=== PATIENT | male | born 1970 | race African-American/Black ===

== ENCOUNTER 2018-10-09 14:03 | Emergency (ER) | payer OTHER ==
[~2018-10-09] VITALS: Ht 188 cm; Wt 95.7 kg
[2018-10-09] MEDS ORDERED: REMERON15 MG ORAL (14:23)
[2018-10-09] MEDS ORDERED: INVEGA SUS78 MG/0.5 IM (14:23)
--- NOTE | 2018-10-09 14:27 | NUR ---
ED Nurse Note: Pt came in from home due to lower back pain x 3 days, 10/10 ada. Pt has hx of spinal stenosis, had a sx last year for L3-4, supposed to be schedule another sx this year for L6-8 but has not have the appointment yet. No recent injury. Pt has been taking Ibuprofen at home but has not been helping. AOx4, VSS. Will cont to monitor.
--- NOTE | 2018-10-09 15:05 | Emergency Room Report ---
History of Present Illness General Chief Complaint: Back Pain-No Injury Source: Patient Present Illness HPI 47-year-old male presents having complaining of 10 out of 10 in severity low back pain that is progressive 3 days. Patient reports history of chronic back pain as well as previous surgery. Patient stated that he was prescribed gabapentin however he is currently in a program and has not had his gabapentin and over a week. He denies trauma or fall, fevers or chills, recent spinal procedures or history of cancer. Denies saddle anesthesia, urinary retention or urinary incontinence. Allergies: Coded Allergies: No Known Allergies (Unverified , 10/09/18) Patient History Past Medical History: see triage record Past Surgical History: none Pertinent Family History: none Reviewed Nursing Documentation: PMH: Agreed; PSxH: Agreed Nursing Documentation-PMH Past Medical History: No History, Except For Hx Cardiac Problems: No Hx Hypertension: Yes Hx Pacemaker: No Hx Asthma: No Hx COPD: No Hx Diabetes: No Hx Cancer: No Hx Gastrointestinal Problems: Yes - alcoholism, hepatitis C Hx Dialysis: No History Of Psychiatric Problem: Yes - depression, schizoaffective disorder Hx Neurological Problems: Yes - spinal stenosis, neuropathy Hx Cerebrovascular Accident: No Hx Seizures: No Review of Systems All Other Systems: negative except mentioned in HPI Physical Exam Vital Signs Date Time Temp Pulse Resp B/P (MAP) Pulse Ox O2 Delivery O2 Flow Rate FiO2 10/09/18 14:17 98.1 101 18 133/88 95 Room Air Sp02 EP Interpretation: reviewed, normal General Appearance: no apparent distress, alert, GCS 15, non-toxic Head: normocephalic, atraumatic Eyes: bilateral eye normal inspection, bilateral eye PERRL ENT: hearing grossly normal, normal voice Neck: full range of motion Respiratory: lungs clear, normal breath sounds, speaking full sentences Cardiovascular #1: regular rate, rhythm, no edema Gastrointestinal: normal bowel sounds, non tender, soft Rectal: deferred Genitourinary: normal inspection Musculoskeletal: back normal, gait/station normal, normal range of motion, non- tender Neurologic: alert, oriented x3, responsive, motor strength/tone normal, sensory intact, speech normal, grossly normal Psychiatric: judgement/insight normal Skin: normal color, no rash, warm/dry, well hydrated Lymphatic: no adenopathy Medical Decision Making PA Attestation Dr. Jimenez is my supervising Physician whom patient management has been discussed with. Diagnostic Impression: Primary Impression: Exacerbation of chronic back pain ER Course 47-year-old male presents having complaining of 10 out of 10 in severity low back pain that is progressive 3 days. Patient reports history of chronic back pain as well as previous surgery. Patient stated that he was prescribed gabapentin however he is currently in a program and has not had his gabapentin and over a week. He denies trauma or fall, fevers or chills, recent spinal procedures or history of cancer. Denies saddle anesthesia, urinary retention or urinary incontinence. Ddx considered: epidural abscess, fracture, sprain/strain, meningitis, spinal chord injury, sciatica, cauda equina, Pyelonephritis, renal calculi just to name a few. Vital signs reviewed and are WNL during ED visit. Pt. is afebrile with no signs of infection No new symptoms, and denies recent trauma. No saddle anesthesia noted, Pt. denies incontinence Neurovascular is intact ROM is limited due to pain * Mild Tenderness to palpation to paraspinal muscles of the lower back with midline tenderness. *Pt. describes pain today as moderate and radiates across the lower back and down the right family manager thigh. ORDERS: none warranted at this time. INTERVENTIONS: - 20mg IM Toradol -Robaxin PO Pt. in [facility] program, will Rx non-controlled medications with lower abuse potential. Gabapentin becoming an abusable medication so small quantity and lowest dose will be used. D/W Pt. that for further pain management is it recommended to consult PCP or a Chronic Pain management doctor. A provider who can safely prescribe controlled substances with close follow up. DISCHARGE: At this time pt. is stable for d/c to home. Will provide printed patient care instructions, and any necessary prescriptions. Care plan and follow up instructions have been discussed with the patient prior to discharge. Last Vital Signs Date Time Temp Pulse Resp B/P (MAP) Pulse Ox O2 Delivery O2 Flow Rate FiO2 10/09/18 14:17 98.1 101 18 133/88 95 Room Air Disposition: HOME, SELF-CARE Condition: Stable Scripts Methocarbamol* (ROBAXIN-750*) 750 Mg Tablet 750 MG PO TID for 7 Days, #21 TAB 0 Refills Prov: Kiesha Brennan 10/09/18 Lidocaine (Lidoderm) 1 Each Adh..patch 1 PATCH TOPIC DAILY, #30 PATCH 0 Refills Patch(es) may remain in place for up to 12 hours in any 24-hour period. Prov: Kiesha Brennan 10/09/18 Gabapentin* (GABAPENTIN*) 300 Mg Capsule 300 MG ORAL THREE TIMES A DAY for 7 Days, #21 CAP 0 Refills Prov: Kiesha Brennan 10/09/18 Patient Instructions: Back Pain, Adult Additional Instructions: Take medications as directed. Follow up with a Primary Care Provider in 3-5 days, even if your symptoms have resolved. --Please review list of primary care clinics, if you do not already have a primary care provider Return sooner to ED if new symptoms occur, or current symptoms become worse. Do not drink alcohol, drive, or operate heavy machinery while taking Gabapentin as this may cause drowsiness. - Please note that this Emergency Department Report was dictated using [employer] refinery supervisor technology software, occasionally this can lead to erroneous entry secondary to interpretation by the dictation equipment. Kiesha Brennan Oct 09, 2018 15:05
[2018-10-09] MEDS ORDERED: GABAPENTIN300 MG ORAL (15:07)
[2018-10-09] MEDS ORDERED: ROBAXIN-750750 MG PO (15:07)
[2018-10-09] MEDS ORDERED: LIDODERM700 M1 TOPIC (15:07)
[2018-10-09] MEDS ORDERED: Ketorolac 30mg Inj IM ONE (15:15)
[2018-10-09] MEDS ORDERED: Methocarbamol 500mg tab ORAL ONE (15:15)
[2018-10-09 15:27] VITALS: BP 132/79
--- NOTE | 2018-10-09 15:27 | NUR ---
ER DISCHARGE NOTE: Patient is cleared to be discharged per ERMD, pt is aox4, on room air, with stable vital signs. pt was given dc and prescription instructions, pt was able to verbalize understanding, pt id band removed. pt is able to ambulate with steady gait. pt took all belongings.
[2018-10-09 15:28] VITALS: BP 132/79
== END 2018-10-09 15:28 | disposition home or self-care (01) ==
LOC: EMR 14:57
DX: M54.5 Low back pain (principal); G89.29 Other chronic pain; I10 Essential (primary) hypertension
CPT/HCPCS: 96372; 99283; J1885